=== PATIENT | male | born 1930 | race Caucasian/White ===

== ENCOUNTER 2018-03-02 13:03 | Emergency (ER) | payer MEDICARE, MEDICAID ==
--- NOTE | 2018-03-02 13:39 | Emergency Department Report ---
ED General Adult HPI - General Chief complaint: High BP Stated complaint: BLOOD PRESSURE HIGH Time Seen by Provider: 03/02/18 13:33 Source: family, RN notes reviewed Limitations: Language Barrier - History of Present Illness Initial comments: Primary care Dr.: Dr. 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 This is an 87-year-old male who was previously unknown to this provider, sent to the ER for evaluation for blood pressure that is asymptomatic. Patient is currently taking blood pressure prescription that he got from [place]. He denies headache, neck pain, chest pain, abdominal pain, shortness of breath, urinary symptoms, weakness, numbness, unsteady gait. He has no symptoms at this time, therefore no exacerbating or relieving factors, therefore no radiation, his family endorses that he is basically at his baseline. Associated Symptoms: denies: confusion, chest pain, cough, diaphoresis, fever/ chills, headaches, loss of appetite, malaise, nausea/vomiting, rash, seizure, shortness of breath, syncope, weakness - Related Data Previous Rx's Medication Instructions Recorded Last Taken Type Amlodipine Besylate [Norvasc] 10 mg PO QDAY #30 tablet 03/02/18 Unknown Rx Carvedilol [Coreg] 12.5 mg PO BID #60 tablet 03/02/18 Unknown Rx Allergies Allergy/AdvReac Type Severity Reaction Status Date / Time No Known Allergies Allergy Unverified 03/02/18 15:10 ED Review of Systems ROS: Stated complaint: BLOOD PRESSURE HIGH Other details as noted in HPI Comment: All other systems reviewed and negative ED Past Medical Hx - Medications Home Medications: Home Medications Medication Instructions Recorded Confirmed Last Taken Type Amlodipine Besylate [Norvasc] 10 mg PO QDAY #30 tablet 03/02/18 Unknown Rx Carvedilol [Coreg] 12.5 mg PO BID #60 tablet 03/02/18 Unknown Rx ED Physical Exam - General Limitations: Language Barrier General appearance: alert, in no apparent distress - Head Head exam: Present: atraumatic, normocephalic - Eye Eye exam: Present: normal appearance, EOMI. Absent: nystagmus - ENT ENT exam: Present: normal exam, normal orophraynx, mucous membranes moist - Neck Neck exam: Present: normal inspection, full ROM - Respiratory Respiratory exam: Present: normal lung sounds bilaterally. Absent: respiratory distress - Cardiovascular Cardiovascular Exam: Present: regular rate, normal rhythm, normal heart sounds. Absent: bradycardia, tachycardia, irregular rhythm, systolic murmur, diastolic murmur, rubs, gallop - GI/Abdominal GI/Abdominal exam: Present: soft, normal bowel sounds. Absent: distended, tenderness, guarding, rebound, rigid - Rectal Rectal exam: Present: normal inspection, normal rectal tone - Extremities Exam Extremities exam: Present: normal inspection, full ROM, other (chronic venous stasis changes noted). Absent: pedal edema, joint swelling - Back Exam Back exam: Present: normal inspection, full ROM. Absent: tenderness, CVA tenderness (R), vertebral tenderness - Neurological Exam Neurological exam: Present: alert, CN II-XII intact, other (Extraocular movements intact. Tongue midline. No facial droop. Facial sensation intact to light touch in the V1, V2, V3 distribution bilaterally. 5 and 5 strength in 4 extremities.. Sensation is intact to light touch in 4 extremities.). Absent : motor sensory deficit - Psychiatric Psychiatric exam: Present: normal affect, normal mood - Skin Skin exam: Present: warm, dry, intact, normal color. Absent: rash ED Course Vital Signs 03/02/18 03/02/18 03/02/18 13:27 13:40 13:58 Temperature 100.2 F H 100.2 F H Pulse Rate 91 H 91 H Respiratory 18 20 18 Rate Blood Pressure 191/98 Blood Pressure 191/98 [Right] O2 Sat by Pulse 96 96 96 Oximetry 03/02/18 03/02/18 03/02/18 14:30 15:00 15:54 Temperature 97.6 F Pulse Rate 89 Respiratory 20 Rate Blood Pressure 196/96 Blood Pressure 189/93 [Right] O2 Sat by Pulse Oximetry - Reevaluation(s) Reevaluation #1: 03/02/18 14:51 Differential diagnosis, including not limited to: Blood pressure that is not symptomatic, asymptomatic hypertension, acute on chronic renal insufficiency, worsening renal insufficiency Assessment and plan: 87-year-old male with a complaint of blood pressure that is not symptomatically. He has no fever, chills, headache, neck pain, chest pain, abdominal pain or shortness of breath. His physical exam is unremarkable , rectal temperature was 97.6. Has no focal pulmonary findings, and no urinary symptoms. Creatinine a few months ago was 2.7, today's 3.3. Please see the [employer] clinical policy for evaluation and treatment of hypertension that is not symptomatic We will discuss with his employee wellness/fitness coordinator, Dr. Guy or whomever is covering for her, patient's blood pressure medications include [place]ghan medicine that does not appear to be FDA approved. Patient will likely require adjustment and titration of blood pressure medications and should be suitable to follow up with outpatient primary care doctor or employee wellness/fitness coordinator. Reevaluation #2: 03/02/18 16:20 Numerous phone calls have been made to the patient's private employee wellness/fitness coordinator, still no answer. Patient is resting comfortably and in no distress. Reevaluation #3: 03/02/18 16:37 Case is discussed with covering nephrology, Dr. Guy. She recommends initiation of amlodipine, 10 mg daily, and carvedilol, 12.5 mg twice daily. She indicates her office will contact the patient to arrange close outpatient follow-up. I will also strongly encouraged the patient's family to contact the employee wellness/fitness coordinator to arrange outpatient follow-up for blood pressure control and monitoring. ED Medical Decision Making - Lab Data Result diagrams: 03/02/18 13:41 03/02/18 13:41 Vital Signs 03/02/18 03/02/18 03/02/18 13:27 13:40 13:58 Temperature 100.2 F H 100.2 F H Pulse Rate 91 H 91 H Respiratory 18 20 18 Rate Blood Pressure 191/98 Blood Pressure 191/98 [Right] O2 Sat by Pulse 96 96 96 Oximetry Lab Results 03/02/18 03/02/18 03/02/18 Range/Units 13:41 13:41 13:41 WBC 8.5 (4.5-11.0) K/mm3 RBC 3.46 L (3.65-5.03) M/mm3 Hgb 11.6 L (11.8-15.2) gm/dl Hct 34.6 L (35.5-45.6) % MCV 100 H (84-94) fl MCH 34 H (28-32) pg MCHC 34 (32-34) % RDW 14.0 (13.2-15.2) % Plt Count 310 (140-440) K/mm3 PT 12.4 (12.2-14.9) Sec. INR 0.88 (0.87-1.13) Sodium 139 (137-145) mmol/L Potassium 4.7 (3.6-5.0) mmol/L Chloride 100.1 (98-107) mmol/L Carbon Dioxide 21 L (22-30) mmol/L Anion Gap 23 mmol/L BUN 47 H (9-20) mg/dL Creatinine 3.3 H (0.8-1.5) mg/dL Estimated GFR 18 ml/min BUN/Creatinine Ratio 14 % Glucose 134 H (75-100) mg/dL Calcium 9.4 (8.4-10.2) mg/dL Critical care attestation.: If time is entered above; I have spent that time in minutes in the direct care of this critically ill patient, excluding procedure time. ED Disposition Clinical Impression: CKD (chronic kidney disease), Elevated blood pressure reading Disposition: TO HOME OR SELFCARE Is pt being admited?: No Does the pt Need Aspirin: No Condition: Stable Instructions: Hypertension (ED), Chronic Kidney Disease (ED) Additional Instructions: Take the blood pressure medications as directed. Follow up with the employee wellness/fitness coordinator, Dr. Guy within the next 2 weeks. Please note that blood pressure was quite elevated. Do not take the blood pressure medication from the other country. Long-term complications of hypertension and elevated blood pressure includes stroke, heart attack, disability, , paralysis, permanent loss of quality of life. Please return to the ER right away with new pain, worsened pain, migration of pain, weakness, numbness, unsteady gait, confusion, inability to tolerate liquid feeds. Prescriptions: Amlodipine Besylate [Norvasc] 10 mg PO QDAY #30 tablet Carvedilol [Coreg] 12.5 mg PO BID #60 tablet Referrals: PRIMARY CARE, [Primary Care Provider] - 3-5 Days ESTIVEN GUY MD [Staff Physician] - 3-5 Days ALEXANDRE SHIN MD [Staff Physician] - 3-5 Days
[2018-03-02 13:57] LABS: Hematocrit 34.6 % (35.5-45.6); Hemoglobin 11.6 gm/dl (11.8-15.2); Mean Corpuscular HGB Conc 34 % (32-34); Mean Corpuscular Hemoglobin 34 pg (28-32); Mean Corpuscular Volume 100 fl (84-94); Platelet Count 310 K/mm3 (140-440); Red Blood Count 3.46 M/mm3 (3.65-5.03)
[2018-03-02 14:08] LABS: INR 0.88 (0.87-1.13)
[2018-03-02 14:14] LABS: Calcium 9.4 mg/dL (8.4-10.2)
[2018-03-02] MEDS ORDERED: NORVASC PO ONE (14:37)
[2018-03-02] MEDS ORDERED: TYLENOL PO ONE (14:37)
[2018-03-02 15:02] LABS: Bilirubin,Urine NEG (Negative); Blood,Urine NEG (Negative); Color,Urine Straw (Yellow); Mucus,Urine FEW /HPF; Urobilinogen,Urine < 2.0 mg/dL (<2.0)
[2018-03-02 16:43] VITALS: BP 180/85
== END 2018-03-02 17:10 | disposition home or self-care (01) ==
LOC: ED 13:03
DX: R03.0 Elevated blood-pressure reading, without diagnosis of hypertension (principal); N18.9 Chronic kidney disease, unspecified
CPT/HCPCS: 36415; 80048; 81001; 85027; 85610; 99284